=== PATIENT | male | born 1945 | race Caucasian/White ===

== ENCOUNTER 2018-02-14 09:54 | Outpatient (CLI) | payer OTHER ==
[~2018-02-14 09:54] MED LIST: CIPRO500 MG PO; COZAAR25 MG PO; GLIMEPIRIDE2 MG PO; GLUCOPHAGE XR500 MG PO; OMEPRAZOLE20 MG PO; SYNTHROID112 MCG PO; ZANTAC150 M3 PO
[2018-02-28] MEDS ORDERED: ZYRTEC10 M3 PO (11:44)
[2018-02-28] MEDS ORDERED: ASPIR 8181 MG PO (11:45)
[2018-02-28] MEDS ORDERED: COZAAR50 MG PO (11:45)
[2018-02-28] MEDS ORDERED: GEMFIBROZIL600 MG PO (11:46)
== END 2018-02-14 10:12 | disposition home or self-care (01) ==
LOC: RAD 09:54 → LAB 09:54
DX: E11.9 Type 2 diabetes mellitus without complications (principal); C61 Malignant neoplasm of prostate; C67.9 Malignant neoplasm of bladder, unspecified; I11.9 Hypertensive heart disease without heart failure

== ENCOUNTER 2018-02-21 11:07 | Outpatient (CLI) | payer OTHER | END 2018-02-21 11:17 | disposition home or self-care (01) | LOC: TOM 11:07 | DX: C61 Malignant neoplasm of prostate (principal); C67.9 Malignant neoplasm of bladder, unspecified ==

== ENCOUNTER 2018-02-21 13:11 | Outpatient (CLI) | payer OTHER ==
[2018-02-28] MEDS ORDERED: ZYRTEC10 M3 PO (11:44)
[2018-02-28] MEDS ORDERED: COZAAR50 MG PO (11:45)
[2018-02-28] MEDS ORDERED: ASPIR 8181 MG PO (11:45)
[2018-02-28] MEDS ORDERED: GEMFIBROZIL600 MG PO (11:46)
== END 2018-02-21 15:00 | disposition home or self-care (01) ==
LOC: EKG 13:11
DX: I11.9 Hypertensive heart disease without heart failure (principal)

== ENCOUNTER → 2018-03-01 | Day surgery (SDC) | payer OTHER ==
[~2018-03-01] MED LIST changes: +ASPIR 8181 MG PO; +COZAAR50 MG PO; +GEMFIBROZIL600 MG PO; +ZYRTEC10 M3 PO
== END | disposition home or self-care (01) ==
LOC: ADM 02-28 09:00 → CIR.AMB 09:00
DX: D30.3 Benign neoplasm of bladder (principal)

== ENCOUNTER 2018-11-17 09:58 | Outpatient (CLI) | payer OTHER | END 2018-11-17 10:02 | disposition home or self-care (01) | LOC: SONOGRAMA 09:58 | DX: N17.0 Acute kidney failure with tubular necrosis (principal) ==

== ENCOUNTER 2018-11-20 09:08 | Outpatient (CLI) | payer OTHER | END 2018-11-20 09:18 | disposition home or self-care (01) | LOC: LAB 09:08 | DX: N17.0 Acute kidney failure with tubular necrosis (principal); D64.89 Other specified anemias; E11.65 Type 2 diabetes mellitus with hyperglycemia ==

== ENCOUNTER 2018-11-21 10:35 | Outpatient (CLI) | payer OTHER | END 2018-11-21 10:50 | disposition home or self-care (01) | LOC: NUCLEAR 10:35 | DX: I63.9 Cerebral infarction, unspecified (principal) ==

== ENCOUNTER → 2018-11-28 | Outpatient (CLI) | payer OTHER | END | disposition home or self-care (01) | LOC: MRI 10:15 | DX: I63.89 Other cerebral infarction (principal); G46.4 Cerebellar stroke syndrome; I69.310 Attention and concentration deficit following cerebral infarction | CPT/HCPCS: 70553; A9575; 70551 ==

== ENCOUNTER 2019-09-06 13:49 | Outpatient (CLI) | payer OTHER | END 2019-09-06 13:53 | disposition home or self-care (01) | LOC: LAB 13:49 | PROVIDERS: ATTEND Urology | DX: N30.00 Acute cystitis without hematuria (principal) ==

== ENCOUNTER 2019-09-07 08:57 | Outpatient (CLI) | payer OTHER | END 2019-09-07 08:58 | disposition home or self-care (01) | LOC: TOM 08:57 | PROVIDERS: ATTEND Urology | DX: C61 Malignant neoplasm of prostate (principal); C67.9 Malignant neoplasm of bladder, unspecified ==

== ENCOUNTER → 2019-09-17 12:41 | Outpatient (CLI) | payer OTHER | END | disposition home or self-care (01) | LOC: LAB 12:41 | PROVIDERS: ATTEND Urology | DX: N30.00 Acute cystitis without hematuria (principal) ==

== ENCOUNTER → 2020-02-12 | Outpatient (CLI) | payer OTHER | END | disposition home or self-care (01) | LOC: TOM 13:13 | PROVIDERS: ATTEND Specialist | DX: E27.49 Other adrenocortical insufficiency (principal); K11.21 Acute sialoadenitis ==

== ENCOUNTER 2020-03-18 13:20 | Outpatient (CLI) | payer OTHER | END 2020-03-18 13:31 | disposition home or self-care (01) | LOC: LAB 13:20 | PROVIDERS: ATTEND Urology | DX: N30.00 Acute cystitis without hematuria (principal) ==

== ENCOUNTER 2020-05-23 07:12 | Outpatient (CLI) | payer OTHER | END 2020-05-23 07:14 | disposition home or self-care (01) | LOC: NUCLEAR 07:12 | PROVIDERS: ATTEND Internal Medicine Cardiovascular Disease | DX: I20.9 Angina pectoris, unspecified (principal) | CPT/HCPCS: 78452; 93017; A9500 ==

== ENCOUNTER 2020-07-10 06:00 | Day surgery (SDC) | payer OTHER | END 2020-07-10 10:25 | disposition home or self-care (01) | LOC: AMB-ENDOS 06:00 | PROVIDERS: ATTEND Surgery | DX: D12.8 Benign neoplasm of rectum (principal); Z20.822 Contact with and (suspected) exposure to COVID-19 ==

== ENCOUNTER 2020-07-31 11:52 | Outpatient (CLI) | payer OTHER | END 2020-07-31 12:02 | disposition home or self-care (01) | LOC: RAD 11:52 | PROVIDERS: ATTEND Specialist | DX: J45.998 Other asthma (principal) ==

== ENCOUNTER 2020-09-16 13:58 | Outpatient (CLI) | payer OTHER ==
[2020-11-04] MEDS ORDERED: DITROPAN XL10 MG PO (13:30)
[2020-11-04] MEDS ORDERED: ALLOPURINOL100 MG PO (13:31)
[2020-11-04] MEDS ORDERED: CETRIZINE PO (13:31)
[2020-11-04] MEDS ORDERED: FENOFI PO (13:32)
[2020-11-04] MEDS ORDERED: JANUMET XR 50-1 EAC1 PO (13:32)
[2020-11-04] MEDS ORDERED: SIMVAST PO (13:33)
[2020-11-04] MEDS ORDERED: PEPCID AC20 MG PO (13:33)
[2020-11-04] MEDS ORDERED: VITAMIN B6100 MG/2.5 PO (13:34)
[2020-11-04] MEDS ORDERED: VITAMIN D3 PO (13:35)
== END 2020-09-16 14:02 | disposition home or self-care (01) ==
LOC: LAB 13:58
PROVIDERS: ATTEND Urology
DX: N30.00 Acute cystitis without hematuria (principal)

== ENCOUNTER 2020-10-13 13:22 | Outpatient (CLI) | payer OTHER ==
[2020-11-04] MEDS ORDERED: DITROPAN XL10 MG PO (13:30)
[2020-11-04] MEDS ORDERED: CETRIZINE PO (13:31)
[2020-11-04] MEDS ORDERED: ALLOPURINOL100 MG PO (13:31)
[2020-11-04] MEDS ORDERED: JANUMET XR 50-1 EAC1 PO (13:32)
[2020-11-04] MEDS ORDERED: FENOFI PO (13:32)
[2020-11-04] MEDS ORDERED: SIMVAST PO (13:33)
[2020-11-04] MEDS ORDERED: PEPCID AC20 MG PO (13:33)
[2020-11-04] MEDS ORDERED: VITAMIN B6100 MG/2.5 PO (13:34)
[2020-11-04] MEDS ORDERED: VITAMIN D3 PO (13:35)
== END 2020-10-13 13:29 | disposition home or self-care (01) ==
LOC: RAD 13:22
PROVIDERS: ATTEND Urology
DX: R07.89 Other chest pain (principal)

== ENCOUNTER 2020-11-05 10:26 | Day surgery (SDC) | payer OTHER ==
[~2020-11-05 10:26] MED LIST changes: +ALLOPURINOL100 MG PO; +CETRIZINE PO; +DITROPAN XL10 MG PO; +FENOFI PO; +JANUMET XR 50-1 EAC1 PO; +PEPCID AC20 MG PO; +SIMVAST PO; +VITAMIN B6100 MG/2.5 PO; +VITAMIN D3 PO
== END 2020-11-05 20:00 | disposition home or self-care (01) ==
LOC: CIR.AMB 10:26
PROVIDERS: ATTEND Urology
DX: C68.0 Malignant neoplasm of urethra (principal); Z20.822 Contact with and (suspected) exposure to COVID-19

== ENCOUNTER 2020-11-26 08:48 | Day surgery (SDC) | payer OTHER | END 2020-11-26 17:00 | disposition home or self-care (01) | LOC: CIR.AMB 08:48 | PROVIDERS: ATTEND Urology | DX: C67.8 Malignant neoplasm of overlapping sites of bladder (principal); C68.0 Malignant neoplasm of urethra; Z20.822 Contact with and (suspected) exposure to COVID-19 ==

== ENCOUNTER 2021-02-18 06:00 | Day surgery (SDC) | payer OTHER ==
[~2021-02-18 06:00] MED LIST changes: +ENALAPRIL MALE2.5 MG
== END 2021-02-18 18:00 | disposition home or self-care (01) ==
LOC: CIR.AMB 06:00
PROVIDERS: ATTEND Urology
DX: C68.0 Malignant neoplasm of urethra (principal); Z20.822 Contact with and (suspected) exposure to COVID-19

== ENCOUNTER 2021-02-27 14:27 | Outpatient (CLI) | payer OTHER | END 2021-02-27 14:33 | disposition home or self-care (01) | LOC: LAB 14:27 | PROVIDERS: ATTEND Urology | DX: D62 Acute posthemorrhagic anemia (principal) ==

== ENCOUNTER 2021-04-01 11:34 | Outpatient (CLI) | payer OTHER | END 2021-04-01 11:35 | disposition home or self-care (01) | LOC: LAB 11:34 | PROVIDERS: ATTEND Urology | DX: C61 Malignant neoplasm of prostate (principal) ==

== ENCOUNTER 2021-04-16 09:17 | Outpatient (CLI) | payer OTHER | END 2021-04-16 09:27 | disposition home or self-care (01) | LOC: TOM 09:17 | PROVIDERS: ATTEND Urology | DX: C67.8 Malignant neoplasm of overlapping sites of bladder (principal); C61 Malignant neoplasm of prostate ==

== ENCOUNTER 2021-06-23 07:22 | Outpatient (CLI) | payer OTHER | END 2021-06-23 07:23 | disposition home or self-care (01) | LOC: NUCLEAR 07:22 | PROVIDERS: ATTEND Internal Medicine Cardiovascular Disease | DX: I87.2 Venous insufficiency (chronic) (peripheral) (principal) ==

== ENCOUNTER 2021-08-28 10:44 | Outpatient (CLI) | payer OTHER | END 2021-08-28 10:50 | disposition home or self-care (01) | LOC: LAB 10:44 | PROVIDERS: ATTEND Urology | DX: D51.1 Vitamin B12 deficiency anemia due to selective vitamin B12 malabsorption with proteinuria (principal); R31.1 Benign essential microscopic hematuria; C67.9 Malignant neoplasm of bladder, unspecified; N30.00 Acute cystitis without hematuria ==

== ENCOUNTER 2021-09-04 08:06 | Outpatient (CLI) | payer OTHER | END 2021-09-04 08:29 | disposition home or self-care (01) | LOC: TOM 08:06 | PROVIDERS: ATTEND Urology | DX: C67.9 Malignant neoplasm of bladder, unspecified (principal); R31.1 Benign essential microscopic hematuria ==

== ENCOUNTER 2021-12-08 14:23 | Outpatient (CLI) | payer OTHER | END 2021-12-08 14:29 | disposition home or self-care (01) | LOC: SONOGRAMA 14:23 | PROVIDERS: ATTEND Urology | DX: C61 Malignant neoplasm of prostate (principal); C67.9 Malignant neoplasm of bladder, unspecified ==

== ENCOUNTER 2022-02-15 09:40 | Outpatient (CLI) | payer OTHER | END 2022-02-15 09:41 | disposition home or self-care (01) | LOC: LAB 09:40 | PROVIDERS: ATTEND Urology | DX: C61 Malignant neoplasm of prostate (principal); C67.9 Malignant neoplasm of bladder, unspecified; R31.1 Benign essential microscopic hematuria; N30.00 Acute cystitis without hematuria ==

== ENCOUNTER 2022-03-02 09:28 | Outpatient (CLI) | payer OTHER | END 2022-03-02 09:40 | disposition home or self-care (01) | LOC: MRI 09:28 | PROVIDERS: ATTEND Urology | DX: C61 Malignant neoplasm of prostate (principal); C67.9 Malignant neoplasm of bladder, unspecified | CPT/HCPCS: 72197; 74183; Q9965 ==

== ENCOUNTER → 2022-05-03 09:50 | Outpatient (CLI) | payer OTHER | END | disposition home or self-care (01) | LOC: LAB 09:50 | PROVIDERS: ATTEND Specialist | DX: D64.89 Other specified anemias (principal); E11.69 Type 2 diabetes mellitus with other specified complication; E03.8 Other specified hypothyroidism; Z13.220 Encounter for screening for lipoid disorders; N39.9 Disorder of urinary system, unspecified; N25.81 Secondary hyperparathyroidism of renal origin; E11.21 Type 2 diabetes mellitus with diabetic nephropathy ==

== ENCOUNTER → 2022-07-08 | Outpatient (CLI) | payer OTHER | END | disposition home or self-care (01) | LOC: SONOGRAMA 14:03 | PROVIDERS: ATTEND Urology | DX: C61 Malignant neoplasm of prostate (principal); C67.9 Malignant neoplasm of bladder, unspecified ==

== ENCOUNTER 2022-08-05 09:37 | Outpatient (CLI) | payer OTHER | END 2022-08-05 10:00 | disposition home or self-care (01) | LOC: TOM 09:37 | PROVIDERS: ATTEND Urology | DX: C61 Malignant neoplasm of prostate (principal); C67.9 Malignant neoplasm of bladder, unspecified ==

== ENCOUNTER 2023-02-10 07:16 | Outpatient (CLI) | payer OTHER | END 2023-02-10 07:29 | disposition home or self-care (01) | LOC: TOM 07:16 | PROVIDERS: ATTEND Urology | DX: C61 Malignant neoplasm of prostate (principal); C67.9 Malignant neoplasm of bladder, unspecified; N20.0 Calculus of kidney ==

== ENCOUNTER 2023-10-21 09:22 | Outpatient (CLI) | payer OTHER | END 2023-10-21 09:38 | disposition home or self-care (01) | LOC: RAD 09:22 | PROVIDERS: ATTEND Urology | DX: C61 Malignant neoplasm of prostate (principal); C67.9 Malignant neoplasm of bladder, unspecified; N31.0 Uninhibited neuropathic bladder, not elsewhere classified ==

== ENCOUNTER 2024-01-30 09:03 | Outpatient (CLI) | payer OTHER | END 2024-01-30 09:14 | disposition home or self-care (01) | LOC: TOM 09:03 | PROVIDERS: ATTEND Surgery | DX: K57.30 Diverticulosis of large intestine without perforation or abscess without bleeding (principal) ==

== ENCOUNTER 2024-05-25 07:13 | Outpatient (CLI) | payer OTHER | END 2024-05-25 07:15 | disposition home or self-care (01) | LOC: NUCLEAR 07:13 | PROVIDERS: ATTEND Internal Medicine | DX: I20.9 Angina pectoris, unspecified (principal) | CPT/HCPCS: 78452; 93017; A9500; J0153 ==

== ENCOUNTER 2024-07-18 13:07 | Outpatient (CLI) | payer OTHER | END 2024-07-18 13:23 | disposition home or self-care (01) | LOC: RAD 13:07 | PROVIDERS: ATTEND Internal Medicine Rheumatology | DX: M54.2 Cervicalgia (principal); M25.512 Pain in left shoulder; M25.561 Pain in right knee; M25.562 Pain in left knee ==